=== PATIENT | female | born 1950 | race African-American/Black ===

== ENCOUNTER 2018-05-15 10:23 | Emergency (ER) | payer OTHER ==
[2018-05-15 10:43] VITALS: BP 151/67; PULSE 78; TEMP 98.8; BMI 29.9
--- NOTE | 2018-05-15 10:58 | PDOC ---
History of Present Illness - General Chief Complaint: Respiratory Stated Complaint: SOB, COUGH Time Seen by Provider: 05/15/18 10:25 History Source: Patient Exam Limitations: No Limitations - History of Present Illness Initial Comments: 68 yo F history COPD, HTN, CAD presents with SOB for past 2 days. She states she has been taking her nebulizer without relief. She also states that weather changes typically prompt her symptoms, and the weather has recently become much cooler. She has had a dry cough for the past week, no fever, no cp. She has had similar symptoms in the past which have required prednisone. Past History - Past Medical History Allergies/Adverse Reactions: Allergies Allergy/AdvReac Type Severity Reaction Status Date / Time No Known Allergies Allergy Verified 05/15/18 10:24 Home Medications: Ambulatory Orders Albuterol Sulfate Inhaler - [Ventolin Hfa Inhaler -] 1 - 2 inh PO QID PRN Anastrozole [Arimidex] 1 mg PO DAILY 05/15/18 Aspirin [Aspirin EC] 81 mg PO DAILY 05/15/18 Atorvastatin Ca [Lipitor] 80 mg PO HS 05/15/18 Azithromycin [Zithromax 250mg Tablets -] 250 mg PO UTDICT #6 tab 05/15/18 Clopidogrel Bisulfate [Plavix] 75 mg PO DAILY 05/15/18 Diltiazem HCl [Diltiazem 24Hr ER] 180 mg PO DAILY 05/15/18 Fluticasone/Salmeterol [Advair 250-50 Diskus] 1 each IH BID 05/15/18 Furosemide 40 mg PO DAILY 05/15/18 Metoprolol Tartrate [Lopressor] 50 mg PO BID 05/15/18 Sennosides/Docusate Sodium [Stool Softener-Laxative Tablet] 1 each PO ASDIR predniSONE [Deltasone -] 40 mg PO DAILY #8 tablet 05/15/18 Cancer: Yes (breast ca 03/2016) COPD: Yes HTN: Yes - Surgical History Cardiac Surgery: Yes (cardiac stents, open heart sx 05/2017, [facility]) - Suicide/Smoking/Psychosocial Hx Smoking History: Never smoked Have you smoked in the past 12 months: No Information on smoking cessation initiated: No Hx Alcohol Use: (occasional) Review of Systems - Review of Systems Able to Perform ROS?: Yes Comments:: GENERAL/CONSTITUTIONAL: No fever or chills. No weakness. HEAD, EYES, EARS, NOSE AND THROAT: No change in vision. No ear pain or discharge. No sore throat. CARDIOVASCULAR: No chest pain. No shortness of breath. RESPIRATORY: +Cough and wheezing. No hemoptysis. GASTROINTESTINAL: No nausea, vomiting, diarrhea or constipation. GENITOURINARY: No dysuria, frequency, or change in urination. MUSCULOSKELETAL: No joint or muscle swelling or pain. No neck or back pain. SKIN: No rash NEUROLOGIC: No headache, vertigo, loss of consciousness, or change in strength/ sensation. ENDOCRINE: No increased thirst. No abnormal weight change. HEMATOLOGIC/LYMPHATIC: No anemia, easy bleeding, or history of blood clots. ALLERGIC/IMMUNOLOGIC: No hives or skin allergy. *Physical Exam - Vital Signs Last Vital Signs Temp Pulse Resp BP Pulse Ox 98.8 F 78 22 151/67 96 05/15/18 10:23 05/15/18 10:23 05/15/18 10:23 05/15/18 10:23 05/15/18 10:23 - Physical Exam Comments: GENERAL: Awake, alert, and fully oriented, in no acute distress HEAD: No signs of trauma EYES: PERRLA, EOMI, sclera anicteric, conjunctiva clear ENT: Auricles normal inspection, hearing grossly normal, nares patent, oropharynx clear without exudates. Moist mucosa NECK: Normal ROM, supple, no lymphadenopathy, JVD, or masses LUNGS: Dec air entry B/L, diffuse exp wheezes. Intermittent dry cough. Prolonged expiratory phase. Speaking full sentences. HEART: Regular rate and rhythm, normal S1 and S2, no murmurs, rubs or gallops ABDOMEN: Soft, nontender, normoactive bowel sounds. No guarding, no rebound. No masses EXTREMITIES: Normal range of motion, no edema. No clubbing or cyanosis. No cords, erythema, or tenderness NEUROLOGICAL: Cranial nerves II through XII grossly intact. Normal speech, normal gait SKIN: Warm, Dry, normal turgor, no rashes or lesions noted. Medical Decision Making - Medical Decision Making 05/15/18 11:16 Pt with COPD exacerbation, likely due to recent weather change. She is not in distress and speaking full sentences. Will give nebs, steroids. Will obtain CXR to r/o pna. 05/15/18 12:33 Pt reassessed. She is s/p 2 treatments, still wheezing, but able to ambulate to the bathroom without difficulty. 05/15/18 13:42 Pt completed the remaining 2 treatments, reports feeling much better. CXR reviewed, no consolidation. Will give a course of steroids and abx (recent cough with inc sputum production). *DC/Admit/Observation/Transfer Diagnosis at time of Disposition: COPD exacerbation - Discharge Dispostion Disposition: HOME Condition at time of disposition: Stable Decision to Admit order: No - Prescriptions Prescriptions: Azithromycin [Zithromax 250mg Tablets -] 250 mg PO UTDICT #6 tab predniSONE [Deltasone -] 40 mg PO DAILY #8 tablet - Referrals Referrals: Neptali Jimenez MD [Primary Care Provider] - - Patient Instructions Printed Discharge Instructions: DI for Chronic Obstructive Pulmonary Disease, DI for Acute Bronchitis - Post Discharge Activity
[2018-05-15] MEDS ORDERED: predniSONE 20 MG TABLET (UD) PO ONE (10:59)
[2018-05-15] MEDS ORDERED: predniSONE 20 MG TABLET (UD) ONE (11:04)
[2018-05-15] MEDS ORDERED: ALBUTEROL SO4 2.5/IPRATROPIUM 0.5 INH SOL 3 ML VIAL.NEB. NEB ONE ×2 (11:04→12:51)
[2018-05-15] MEDS: ALBUTEROL SO4 2.5/IPRATROPIUM 0.5 INH SOL 3 ML VIAL.NEB. NEB SCH ×4 (11:09→12:50)
== END 2018-05-15 13:50 | disposition home or self-care (01) ==
LOC: FER 10:23
PROC: 3E0F7GC Introduction of Other Therapeutic Substance into Respiratory Tract, Via Natural or Artificial Opening (ICD-10-PCS; principal; 2018-05-15)
DX: J44.1 Chronic obstructive pulmonary disease with (acute) exacerbation (principal); I10 Essential (primary) hypertension; I25.10 Atherosclerotic heart disease of native coronary artery without angina pectoris; Z85.3 Personal history of malignant neoplasm of breast; Z95.5 Presence of coronary angioplasty implant and graft
CPT/HCPCS: 71045-TC-FY; 99283-25; J7620